=== PATIENT | female | born 1970 | race Caucasian/White ===

== ENCOUNTER → 2017-03-29 | Outpatient (CLI) | payer OTHER | LOC: FIMAGING 15:57 | PROVIDERS: ATTEND Obstetrics & Gynecology | DX: Z12.31 Encounter for screening mammogram for malignant neoplasm of breast (principal) | CPT/HCPCS: G0202 ==

== ENCOUNTER 2018-07-14 19:47 | Day surgery (SDC) | payer OTHER ==
[2018-07-14] MEDS ORDERED: LORazepam 2 MG/ML INJ ONE (20:42)
[2018-07-14] MEDS ORDERED: LORazepam 2 MG/ML INJ IVP ONE (20:48)
--- NOTE | 2018-07-14 21:19 | EDPHY ---
H & P Time Seen by Provider: 07/14/18 20:36 HPI/ROS: HPI Something stuck in my esophagus. 48-year-old female by private vehicle with her . This patient reports that she was eating a piece of pork at 9:00 a.m. This morning. She reports she felt it get stock at the bottom of her esophagus. She reports that this has happened to her several times before over the last 5 years. She reports that usually resolves over some time. She reports that she still has a sensation of an impacted food bolus in her lower esophagus. She has not seen a interactive media marketing specialist. She has never had endoscopy. She reports that she is able to get some saliva down but most fluids just come back up. ROS: Constitutional: No fever, no chills. As above. ENT: No sore throat. No nasal congestion or rhinorrhea. Respiratory: No cough. No shortness of breath. Cardiac: No chest pain, no palpitations. Gastrointestinal: No abdominal pain, no vomiting, no diarrhea. Musculoskeletal: No back pain. No neck pain. No myalgias or arthralgias. Skin: No rashes. Neurological: No headache. No focal weakness or altered sensation. Past medical history: Hypothyroid. Otherwise as above. Social history: Nonsmoker. She is here with her . No alcohol. Physical Exam: General Appearance: Alert, she is not in distress. This patient is responding to questions appropriately and in full sentences. This patient appears well- hydrated and well-nourished. Eyes: Pupils equal and round no pallor or injection. No lid edema, erythema or injection. Respiratory: There are no retractions, lungs are clear to auscultation with good air movement bilaterally. Cardiovascular: Regular rate and rhythm. No murmur. Gastrointestinal: Abdomen is soft and nontender, no masses, bowel sounds normal. No focal tenderness at McBurney's point. No Ruiz sign. Neurological: Motor sensory function is grossly intact. Cranial nerves are normal. Gait is normal. Skin: Warm and dry, no rashes. Musculoskeletal: Neck is supple and nontender. Extremities are symmetrical. All joints range without pain or impingement. Psychiatric: No agitation. No depression. Database: EKG: Imaging: Procedures: Emergency department course: Triage vital signs reviewed and are unremarkable. An IV was placed. We initially gave the patient some carbonated beverage. She was not able to swallow this. Would stay down for a brief period of time and then she was put back up. An IV was placed. She was given 1 mg of IV Ativan at 8:55 p.m.. 9:55 p.m., the patient has had no relief with IV Ativan. She was given sublingual nitroglycerin. 10:25 p.m., no relief from sublingual nitroglycerin, gastroenterology paged. 10:30 p.m., spoke with on-call interactive media marketing specialist Dr. Samuel Nam. He will take this patient to the endoscopy suite this evening for removal of impacted lower esophageal food bolus. This plan was discussed with the patient and her . All their questions were answered. Her remaining emergency department course under my has been unremarkable. She was transferred to the endoscopy suite in stable condition under the care of Dr. Nam. Differential Diagnosis: The differential diagnosis on this patient includes but is not limited to impacted lower esophageal food bolus. This represents a partial list of diagnoses considered. These considerations are based on history, physical exam , past history, reassessment and diagnostic testing. Smoking Status: Never smoked Constitutional: Initial Vital Signs Temperature (C) 36.8 C 07/14/18 19:50 Heart Rate 81 07/14/18 19:50 Respiratory Rate 18 07/14/18 19:50 Blood Pressure 136/87 H 07/14/18 19:50 O2 Sat (%) 96 07/14/18 19:50 O2 Delivery Mode Room Air O2 (L/minute) 6 Allergies/Adverse Reactions: Penicillins Allergy (Severe, Verified 02/26/11 11:31) THROAT SWELLS SHUT HORSES Allergy (Severe, Uncoded 02/26/11 11:31) THROAT SWELLS SHUT Home Medications: Medication Instructions Recorded Synthroid 07/14/18 Medical Decision Making - Data Points Medications Given: Discontinued Medications Lorazepam (Ativan Injection) 1 mg IVP EDNOW ONE Stop: 07/14/18 20:49 Last Admin: 07/14/18 20:54 Dose: 1 mg Nitroglycerin (Nitrostat) 0.4 mg SL EDNOW ONE Stop: 07/14/18 21:52 Last Admin: 07/14/18 21:52 Dose: 1 tab Departure - Departure Disposition: To OP Cath/Surgery Clinical Impression: Impacted esophageal foreign body Condition: Good
[2018-07-14] MEDS ORDERED: NITROGLYCERIN 0.4 MG BTL SL ONE ×2 (21:49→21:51)
[2018-07-14] MEDS ORDERED: ROCURONIUM 50 MG/5 ML VIAL ONE (22:47)
[2018-07-14] MEDS ORDERED: SUCCINYLCHOLINE CHLORIDE 200 MG/10 ML SYR IVP ONE (22:47)
[2018-07-14] MEDS ORDERED: PROPOFOL 200 MG/20 ML VIAL ONE (22:48)
[2018-07-14] MEDS ORDERED: fentaNYL 100 MCG/2 ML INJ ONE (22:48)
[2018-07-14] MEDS ORDERED: LIDOCAINE 2% 2 ML INJ ONE ×3 (22:48)
[2018-07-14] MEDS ORDERED: MIDAZOLAM 2 MG/2 ML VIAL ONE (22:48)
--- NOTE | 2018-07-14 23:18 | PDANEPAE ---
ANE History of Present Illness egd ANE Past Medical History - Cardiovascular History Hx Hypertension: No Hx Arrhythmias: No Hx Chest Pain: No Hx Coronary Artery / Peripheral Vascular Disease: No Hx CHF / Valvular Disease: No Hx Palpitations: No - Pulmonary History Hx COPD: No Hx Asthma/Reactive Airway Disease: No Hx Recent Upper Respiratory Infection: No Hx Oxygen in Use at Home: No Hx Sleep Apnea: No - Neurologic History Hx Cerebrovascular Accident: No Hx Seizures: No Hx Dementia: No - Endocrine History Hx Diabetes: No Hypothyroid: No Hyperthyroid: No Obesity: no - Renal History Hx Renal Disorders: No - Liver History Hx Hepatic Disorders: No - GI History GERD: no Hx Gastrointestinal Disorders: Yes ANE Review of Systems Review of Systems: - Exercise capacity Exercise capacity: >=4 METS ANE Patient History - Allergies Allergies/Adverse Reactions: Penicillins Allergy (Severe, Verified 02/26/11 11:31) THROAT SWELLS SHUT HORSES Allergy (Severe, Uncoded 02/26/11 11:31) THROAT SWELLS SHUT - Home Medications Home Medications: Synthroid 07/14/18 [Last Taken Unknown] - NPO status NPO Since - Liquids (Date): 07/14/18 NPO Since - Liquids (Time): 21:00 NPO Since - Solids (Date): 07/14/18 NPO Since - Solids (Time): 09:00 - Anes Hx Anes Hx: no prior problems - Smoking Hx Smoking Status: Never smoked ANE Labs/Vital Signs - Vital Signs Blood Pressure: 132/81 Heart Rate: 80 Respiratory Rate: 16 O2 Sat (%): 96 Height: 175.26 cm Weight: 81.647 kg ANE Physical Exam - Airway Mallampati Score: Class 2 Mouth exam: normal dental/mouth exam - Pulmonary Pulmonary: no respiratory distress - Cardiovascular Cardiovascular: regular rate and rhythym - ASA Status ASA Status: I, E ANE Anesthesia Plan Anesthesia Plan: general endotracheal anesthesia
[2018-07-14] MEDS ORDERED: LR 1,000 ML IV ONE (23:19)
[2018-07-14] MEDS ORDERED: SUGAMMADEX SODIUM 200 MG/2 ML VIAL IVP ONE (23:53)
[2018-07-15] MEDS ORDERED: fentaNYL 100 MCG/2 ML INJ IVP PRN (00:30)
[2018-07-15] MEDS ORDERED: ONDANSETRON 4 MG/2 ML VIAL IVP PRN (00:30)
[2018-07-15] MEDS ORDERED: NALOXONE HCL 0.4 MG/ML INJ IVP PRN (00:30)
[2018-07-15] MEDS ORDERED: LR 500 ML IV PRN (00:30)
[2018-07-15] MEDS ORDERED: ALBUTEROL 3 ML DEYVIAL IH PRN (00:30)
--- NOTE | 2018-07-15 00:30 | GIREPORT ---
[facility] - Endoscopy Department Patient Name: Estefani Collier Procedure Date: 07/14/2018 11:31 PM Patient Type: Outpatient Attending MD/ ER Physician: Samuel Nam MD Procedure: Upper GI endoscopy Indications: Dysphagia, Foreign body in the esophagus Providers: Samuel Nam MD Referring MD: Joycelyn Guillaume MD Medicines: General Anesthesia Complications: No immediate complications. Estimated blood loss: Minimal. Description of Procedure: After obtaining informed consent, the endoscope was passed under direct vision. Throughout the procedure, the patient's blood pressure, pulse, and oxygen saturations were monitored continuously. The Endoscope was intro duced through the mouth, and advanced to the third part of duodenum. The uppe r GI endoscopy was accomplished without difficulty. The patient tolerated th e procedure well. Findings: Food was found in the lower third of the esophagus. Removal was accompl ished with a rat-toothed forceps, Jo net and snare. Estimated blood loss wa s minimal. One benign-appearing, intrinsic stenosis was found at the gastroesophag eal junction. The stenosis was traversed. A TTS dilator was passed through the scope. Dilation with a 12-13.5-15 mm x 5.5 cm CRE balloon dilator was performed to 15 mm. The dilation site was examined and showed moderate improvement in luminal narrowing. Estimated blood loss was minimal. The upper third of the esophagus and lower third of the esophagus were normal. Biopsies were obtained from the proximal and distal esophagus w ith cold forceps for histology of suspected eosinophilic esophagitis. Multiple small semi-sessile polyps with no bleeding and no stigmata of recent bleeding were found in the gastric body. Biopsies were taken wit h a cold forceps for histology. Estimated blood loss was minimal. The examined duodenum was normal. The exam was otherwise without abnormality. Estimated Blood Loss: Estimated blood loss was minimal. Post Op Diagnosis: - Food was found in the esophagus. Removal was successful. - Benign-appearing esophageal stenosis. Dilated. - Normal upper third of esophagus and lower third of esophagus. Biopsie d. - Multiple gastric polyps. Biopsied. - Normal examined duodenum. - The examination was otherwise normal. Recommendation: - Await pathology results. - My office will call with the pathology result with 5-7 days. If you h ave not heard from my office by 04-15, do not assume the pathology is natividad l, please call [phone] to get the pathology results. - Use Protonix (pantoprazole) 40 mg PO daily for 3 months. Continue unt il after next EGD. - If biopsy are consistent with Eosinophilic Esophagitis (EoE), then re zak to employment security officer and consider swallowed not inhaled fluticasone prn. - Cut food into small pieces and chew well. - Repeat upper endoscopy in 8 weeks for retreatment. - Discharge patient to home (ambulatory). - Return to GI clinic in 4 weeks. - Return to primary care physician as previously scheduled. - Thank you for allowing me to help in your patient's care. Do not hesi gupta to call with any questions. Attending Participation: I personally performed the entire procedure. Cyril Brown M.D Samuel Nam MD 07/15/2018 12:29:58 AM This report has been signed electronicallyMatttoño Nam MD Number of Addenda: 0 Note Initiated On: 07/14/2018 11:31 PM [email or web address]
--- NOTE | 2018-07-15 00:30 | POSTANESTH ---
Post Anesthetic Evaluation Cardiovascular Status: Normal, Stable Respiratory Status: Normal, Stable Level of Consciousness/Mental Status: Can Participate in Eval Pain Control: Adequate, Prn Tx Ordered Nausea/Vomiting Control: Adequate, Prn Tx Ordered Complications Possibly Related to Anesthesia: None Noted
[2018-07-15 01:23] VITALS: BP 112/68
--- NOTE | 2018-07-15 07:59 | GCON ---
[f rep st] CONSULTATION DATE OF CONSULTATION: 07/14/2018 REQUESTING PHYSICIAN: Forrest Fagan DO INDICATION FOR CONSULTATION: Foreign body, history of dysphagia. HISTORY OF PRESENT ILLNESS: The patient is a pleasant 48-year-old female who has a past medical hist ory significant for hypothyroidism secondary to thyroidectomies from thyroid cancer. She has had int ermittent problems with dysphagia over the last 5 years where she has food getting stuck, but she is usually able to have it pass or regurgitate it. This morning, she was eating eggs with pork chops an d had this stuck at 9 a.m. The sensation of foreign body has not resolved. She has been able to forest erate some saliva but has not been able to drink liquids. They seem to just come back up. She does not complain of any heartburn or history of regurgitation. There is no family history of similar sym ptoms. She is now in the emergency room for evaluation of above, and I am called to help in that reg leticia. PAST MEDICAL HISTORY: Hypothyroidism. PAST SURGICAL HISTORY: Thyroidectomy in 2010. MEDICATIONS: At home include Synthroid 137 mcg. ALLERGIES: Penicillin, which causes anaphylaxis. SOCIAL HISTORY: She does not smoke tobacco. She drinks alcohol socially. She is . She is h ere with her . FAMILY HISTORY: Her mother had both Hodgkin and non-Hodgkin lymphoma about 30 years apart. [facility] age 75, but he worked at [employer]. A maternal grandparent had breast cance r. REVIEW OF SYSTEMS: A completed review of systems was performed and negative other than noted in HPI. PHYSICAL EXAM: GENERAL: Well developed, well nourished, no acute distress, sitting in her bed. VIT AL SIGNS: Blood pressure 132/81, heart rate 80, respiratory rate 16, oxygen 96% on room air, tempera ture 36.6. EYES: Anicteric. TOÑO, EOMI. MOUTH: No lesions. Moist mucous membranes. NECK: Supp le. Full range of motion. No JVD. BACK: No spine tenderness. No CVA tenderness. LUNGS: Clear t o auscultation. CARDIAC: S1, S2. Regular rate, rhythm. No murmurs, rubs, or gallops appreciated. ABDOMEN: Bowel sounds are normal in pitch and frequency. Soft, nontender. No hepatosplenomegaly. EXTREMITIES: No cyanosis, clubbing, or edema. NEUROLOGIC: Cranial nerves intact, nonfocal. SKIN: No rashes. LABORATORY DATA: None. 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 ASSESSMENT: 1. History of intermittent dysphagia. 2. Foreign body. 3. History of thyroid cancer. 4. Family history of bladder cancer and lymphoma. RECOMMENDATIONS: 1. Urgent EGD with anesthesia for removal of foreign body and biopsy of the both proximal and distal esophagus for evaluation of eosinophilic esophagitis. 2. Will recommend a proton pump inhibitor such as Protonix 40 mg once daily half an hour to an hour before lunch or dinner for at least 8 weeks. 3. Will likely recommend repeat EGD pending results of above. Thank you for allowing me to participate in patient's healthcare. Do not hesitate to call me with an y questions. /[id number]/MODL
== END 2018-07-15 01:18 | disposition home or self-care (01) ==
LOC: FSGY 22:50
PROVIDERS: ATTEND Internal Medicine Gastroenterology
PROC: 0DB68ZX Excision of Stomach, Via Natural or Artificial Opening Endoscopic, Diagnostic (ICD-10-PCS; principal; 2018-07-14 23:00)
PROC: 0DC38ZZ Extirpation of Matter from Lower Esophagus, Via Natural or Artificial Opening Endoscopic (ICD-10-PCS; principal; 2018-07-14 23:00)
PROC: 0D748ZZ Dilation of Esophagogastric Junction, Via Natural or Artificial Opening Endoscopic (ICD-10-PCS; principal; 2018-07-14 23:00)
DX: T18.128A Food in esophagus causing other injury, initial encounter (principal); K22.2 Esophageal obstruction; E89.0 Postprocedural hypothyroidism; Z85.850 Personal history of malignant neoplasm of thyroid
CPT/HCPCS: 43239; 43247; 43249; C1726; 96374; J0330; J2060; J2250; J2704; J3010

== ENCOUNTER → 2018-10-25 | Outpatient (CLI) | payer OTHER | LOC: EMCIMAGING 10:28 ==